=== PATIENT | female | born 1970 | race African-American/Black ===

== ENCOUNTER → 2016-11-23 | Outpatient (CLI) | payer OTHER ==
[~2016-11-23] MED LIST: ERGOCALCIFER50000 IU PO; KLONOPIN 0.5MG0.5 MG PO; LIPITOR 80MG80 MG PO; MINIPRESS2 MG; NAPROSYN500 MG PO; PROZAC 20MG20 MG PO; SEROQUEL400 MG PO; VISTARIL 2525 MG/CAP PO
== END ==
LOC: COL.RAD 07:30
DX: S83.512A Sprain of anterior cruciate ligament of left knee, initial encounter (principal); M84.372A Stress fracture, left ankle, initial encounter for fracture; S93.492A Sprain of other ligament of left ankle, initial encounter; X58.XXXA Exposure to other specified factors, initial encounter

== ENCOUNTER → 2016-12-11 | Outpatient (CLI) | payer OTHER | LOC: MC.RAD 13:40 | DX: Z12.31 Encounter for screening mammogram for malignant neoplasm of breast (principal); Z53.9 Procedure and treatment not carried out, unspecified reason ==

== ENCOUNTER 2017-01-15 18:34 | Emergency (ER) | payer OTHER ==
[~2017-01-15] VITALS: Ht 172.7 cm; Wt 72.7 kg
[2017-01-15 18:36] VITALS: BP 139/76; TEMP 99.1
[2017-01-15] MEDS ORDERED: KLONOPIN 0.5MG0.5 MG PO (19:01)
[2017-01-15] MEDS ORDERED: LIPITOR 80MG80 MG PO (19:01)
[2017-01-15] MEDS ORDERED: PROZAC 20MG20 MG PO (19:02)
[2017-01-15] MEDS ORDERED: ERGOCALCIFER50000 IU PO (19:02)
[2017-01-15] MEDS ORDERED: VISTARIL 2525 MG/CAP PO (19:03)
[2017-01-15] MEDS ORDERED: NAPROSYN500 MG PO (19:03)
[2017-01-15] MEDS ORDERED: MINIPRESS2 MG (19:06)
[2017-01-15] MEDS ORDERED: SEROQUEL400 MG PO (19:06)
[2017-01-15 20:14] VITALS: PULSE 94
== END 2017-01-15 20:14 | disposition home or self-care (01) ==
LOC: COL.ER 18:34
DX: J02.0 Streptococcal pharyngitis (principal); F43.10 Post-traumatic stress disorder, unspecified; R51 Headache; R05 Cough
CPT/HCPCS: J0561

== ENCOUNTER → 2018-02-09 | Outpatient (CLI) | payer OTHER | LOC: MC.RAD 01-04 13:20 | DX: Z12.31 Encounter for screening mammogram for malignant neoplasm of breast (principal) ==

== ENCOUNTER 2018-11-28 10:01 | Emergency (ER) | payer OTHER ==
[~2018-11-28] VITALS: Ht 172.7 cm; Wt 88.6 kg
[2018-11-28 10:15] VITALS: TEMP 97.8
[2018-11-28 12:30] LABS: BASO # 0.1 (0.0-0.2); BASO % 0.9 % (0.0-2.0); EOS # 0.1 (0.0-0.7); GRAN # 3.5 (1.4-6.5); GRAN % 54.8 % (42.2-75.2); HEMATOCRIT 38.6 % (37.0-47.0); HEMOGLOBIN 11.6 g/dl (12.5-16.0); LYMPH # 1.9 (1.2-3.4); LYMPH % 29.1 % (20.0-51.0); MEAN CELL VOLUME 76 fl (80.0-100.0); MEAN CORPUSCULAR HEMOGLOBIN 23 pg (27.0-31.0); MEAN CORPUSCULAR HGB CONC 30 g/dl (33.0-37.0); MEAN PLATELET VOLUME 8.8 fl (7.4-10.4); MONO # 0.8 (0.1-0.6); MONO % 12.9 % (1.7-9.3); PLATELET COUNT 339 K/mm3 (130-400); RED BLOOD COUNT 5.05 M/mm3 (4.10-5.30); REDCELL DISTRIBUTION WIDTH-CV 15.1 % (11.5-14.5)
[2018-11-28 12:42] LABS: ALANINE AMINOTRANSFERASE 23 U/L (9-52); ALBUMIN 3.9 gm/dL (3.5-5.0); ALKALINE PHOSPHATASE 88 U/L (50-136); ANION GAP 7 mmol/L (7-16); AST,SGOT 37 U/L (15-37); BILIRUBIN,TOTAL 0.5 mg/dL (0.0-1.0); BLOOD UREA NITROGEN 11 mg/dL (7-17); CALCIUM 9.5 mg/dL (8.4-10.2); CARBON DIOXIDE 26 mmol/L (22-30); CHLORIDE 105 mmol/L (98-107); GLUCOSE 92 mg/dL (74-106); POTASSIUM 4.6 mmol/L (3.4-5.0); SODIUM 138 mmol/L (137-145); TOTAL PROTEIN 7.4 gm/dL (6.4-8.2)
[2018-11-28 13:00] LABS: TROPONIN-I < 0.012 ng/mL (0.000-0.035)
[2018-11-28 13:26] LABS: COLLECTION METHOD CLEAN CATCH
[2018-11-28 13:39] LABS: MUCOUS Present /lpf; PH 6 (5-8); URINE APPEARANCE Hazy; URINE BACTERIA Rare /hpf; URINE BILIRUBIN Negative (NEGATIVE); URINE BLOOD Negative (NEGATIVE); URINE COLOR Yellow; URINE GLUCOSE Negative (NEGATIVE); URINE KETONE Negative (NEGATIVE); URINE LEUKOCYTE ESTERASE 1+ (NEGATIVE); URINE NITRATE Negative (NEGATIVE); URINE PROTEIN(semi-quant) Negative (NEGATIVE); URINE UROBILINOGEN Negative (NEGATIVE)
[2018-11-28 14:00] VITALS: BP 118/66; PULSE 68
[2018-11-28] MEDS ORDERED: ZOFRAN 4MG T4 MG/TAB PO (14:03)
== END 2018-11-28 14:05 | disposition home or self-care (01) ==
LOC: COL.ER 10:01
PROVIDERS: Emergency Medicine
DX: R42 Dizziness and giddiness (principal); R06.02 Shortness of breath; R53.81 Other malaise; E11.9 Type 2 diabetes mellitus without complications
CPT/HCPCS: J1885; J7030

== ENCOUNTER → 2019-03-31 | Outpatient (CLI) | payer OTHER ==
[~2019-03-31] MED LIST changes: +ZOFRAN 4MG T4 MG/TAB PO
== END ==
LOC: COL.RAD 14:10
DX: M25.562 Pain in left knee (principal); M25.572 Pain in left ankle and joints of left foot